=== PATIENT | female | born 1965 | race Caucasian/White ===

== ENCOUNTER → 2016-07-29 | Outpatient (CLI) | payer BC | LOC: MC.RAD 16:34 | DX: Z12.31 Encounter for screening mammogram for malignant neoplasm of breast (principal); N63 Unspecified lump in breast; Z80.3 Family history of malignant neoplasm of breast ==

== ENCOUNTER → 2016-08-02 | Outpatient (CLI) | payer BC | LOC: MC.RAD 08:30 | DX: D24.2 Benign neoplasm of left breast (principal); Z80.3 Family history of malignant neoplasm of breast ==

== ENCOUNTER → 2017-08-05 | Outpatient (CLI) | payer BC | LOC: MC.RAD 07:00 | DX: Z12.31 Encounter for screening mammogram for malignant neoplasm of breast (principal) ==

== ENCOUNTER 2017-09-09 10:32 | Inpatient (IN) | payer BC ==
[2017-09-09] VITALS (398 sets, daily range): BP systolic 87–101; BP diastolic 42–67; PULSE 113–162; TEMP 99.5–103.4; O2SAT 43–100
[~2017-09-09] VITALS: Ht 165.1 cm; Wt 83.3 kg
[2017-09-09] MEDS ORDERED: ZOFRAN ODT4 MG PO (10:45)
[2017-09-09 11:11] LABS: GRAN # 3.2 (1.4-6.5); GRAN % 87.6 % (42.2-75.2); HEMOGLOBIN 12.7 g/dl (12.5-16.0); LYMPH # 0.4 (1.2-3.4); MEAN CELL VOLUME 87 fl (80.0-100.0); MEAN CORPUSCULAR HEMOGLOBIN 30 pg (27.0-31.0); MEAN CORPUSCULAR HGB CONC 34 g/dl (33.0-37.0); MEAN PLATELET VOLUME 9.5 fl (7.4-10.4); MONO % 1.1 % (1.7-9.3); PLATELET COUNT 109 K/mm3 (130-400); RED BLOOD COUNT 4.26 M/mm3 (4.10-5.30); REDCELL DISTRIBUTION WIDTH-CV 12.7 % (11.5-14.5)
[2017-09-09 11:13] LABS: HEMATOCRIT 36.9 % (37.0-47.0)
[2017-09-09 11:32] LABS: COLLECTION METHOD CATHETER
[2017-09-09 11:35] LABS: ALBUMIN 3.8 gm/dL (3.5-5.0); CALCIUM 8.6 mg/dL (8.4-10.2); CREATININE, serum 1.92 mg/dL (0.52-1.25); POTASSIUM 3.8 mmol/L (3.4-5.0); TOTAL PROTEIN 6.8 gm/dL (6.4-8.2)
[2017-09-09 12:01] LABS: BUDDING YEAST Present /hpf; GRANULAR CAST >12 /lpf; HYALINE CAST >12 /lpf; MUCOUS Present /lpf; PH 5 (5-8); SQUAMOUS EPITHELIAL None Seen /hpf; URINE APPEARANCE Hazy; URINE BACTERIA Many /hpf; URINE BILIRUBIN Negative (NEGATIVE); URINE BLOOD 2+ (NEGATIVE); URINE COLOR Yellow; URINE GLUCOSE Negative (NEGATIVE); URINE KETONE Negative (NEGATIVE); URINE LEUKOCYTE ESTERASE 1+ (NEGATIVE); URINE NITRATE Positive (NEGATIVE); URINE PROTEIN(semi-quant) 1+ (NEGATIVE); URINE UROBILINOGEN Negative (NEGATIVE)
[2017-09-09] MEDS ORDERED: MULTI VITAMINS1 TAB PO (16:26)
[2017-09-09] MEDS ORDERED: CLARITIN 1010 MG/TAB PO (16:28)
[2017-09-09] MEDS ORDERED: CALCIUM 600 PLU1 TAB PO (16:29)
[2017-09-10] VITALS (1190 sets, daily range): BP systolic 72–138; BP diastolic 45–83; PULSE 72–106; TEMP 97.8–99.5; O2SAT 83–100
[2017-09-10 03:02] LABS: MEAN CELL VOLUME 91 fl (80.0-100.0); MEAN CORPUSCULAR HGB CONC 33 g/dl (33.0-37.0); MEAN PLATELET VOLUME 10.3 fl (7.4-10.4); PLATELET COUNT 61 K/mm3 (130-400); RED BLOOD COUNT 3.23 M/mm3 (4.10-5.30); REDCELL DISTRIBUTION WIDTH-CV 13.2 % (11.5-14.5)
[2017-09-10 03:13] LABS: ALBUMIN 2.4 gm/dL (3.5-5.0); BILIRUBIN,TOTAL 0.7 mg/dL (0.0-1.0); CALCIUM 6.1 mg/dL (8.4-10.2); CREATININE, serum 2.13 mg/dL (0.52-1.25); POTASSIUM 4.1 mmol/L (3.4-5.0); TOTAL PROTEIN 4.8 gm/dL (6.4-8.2)
[2017-09-10 03:38] LABS: TROPONIN-I 0.849 ng/mL (0.000-0.034)
[2017-09-10 03:39] LABS: HEMATOCRIT 29.4 % (37.0-47.0); MEAN CORPUSCULAR HEMOGLOBIN 30 pg (27.0-31.0)
[2017-09-10 03:40] LABS: HEMOGLOBIN 9.6 g/dl (12.5-16.0)
[2017-09-10 04:41] LABS: BAND 45 % (0-10); BASOPHIL 1 % (0-2); EOSINOPHIL 1 % (0-4); LYMPHOCYTE 3 % (20.0-51.0); METAMYELOCYTE 1 % (0-0); NEUTROPHILS 45 % (42.0-75.2); PLATELET ESTIMATE DECREASED (NORMAL)
[2017-09-10 09:00] LABS: CALCIUM 7.1 mg/dL (8.4-10.2); CREATININE, serum 1.85 mg/dL (0.52-1.25); POTASSIUM 4.1 mmol/L (3.4-5.0)
[2017-09-11] VITALS (733 sets, daily range): BP systolic 110–124; BP diastolic 65–89; PULSE 78–104; TEMP 97.8–101.6; O2SAT 64–100
[2017-09-11 05:44] LABS: MEAN CELL VOLUME 88 fl (80.0-100.0); MEAN CORPUSCULAR HGB CONC 34 g/dl (33.0-37.0); MEAN PLATELET VOLUME 11.1 fl (7.4-10.4); PLATELET COUNT 85 K/mm3 (130-400); RED BLOOD COUNT 3.48 M/mm3 (4.10-5.30); REDCELL DISTRIBUTION WIDTH-CV 13.7 % (11.5-14.5)
[2017-09-11 05:56] LABS: BILIRUBIN,TOTAL 0.7 mg/dL (0.0-1.0); CALCIUM 7.5 mg/dL (8.4-10.2); CREATININE, serum 1.22 mg/dL (0.52-1.25); POTASSIUM 3.4 mmol/L (3.4-5.0); TOTAL PROTEIN 5.7 gm/dL (6.4-8.2)
[2017-09-11 06:10] LABS: HEMATOCRIT 30.6 % (37.0-47.0); HEMOGLOBIN 10.3 g/dl (12.5-16.0); MEAN CORPUSCULAR HEMOGLOBIN 30 pg (27.0-31.0)
[2017-09-11 08:15] LABS: BAND 28 % (0-10); LYMPHOCYTE 3 % (20.0-51.0); NEUTROPHILS 65 % (42.0-75.2); PLATELET ESTIMATE DECREASED (NORMAL)
[2017-09-12 02:51] VITALS: BP 128/52; PULSE 77; TEMP 98.6
[2017-09-12 07:41] LABS: BASO % 0.2 % (0.0-2.0); EOS % 0.2 % (0-4.0); GRAN # 8.3 (1.4-6.5); GRAN % 81.6 % (42.2-75.2); LYMPH # 0.9 (1.2-3.4); LYMPH % 9.3 % (20.0-51.0); MEAN CELL VOLUME 87 fl (80.0-100.0); MEAN CORPUSCULAR HGB CONC 34 g/dl (33.0-37.0); MONO # 0.8 (0.1-0.6); PLATELET COUNT 78 K/mm3 (130-400); RED BLOOD COUNT 3.18 M/mm3 (4.10-5.30); REDCELL DISTRIBUTION WIDTH-CV 13.3 % (11.5-14.5)
[2017-09-12 07:46] LABS: HEMATOCRIT 27.7 % (37.0-47.0); HEMOGLOBIN 9.4 g/dl (12.5-16.0); MEAN CORPUSCULAR HEMOGLOBIN 30 pg (27.0-31.0)
[2017-09-12 07:57] LABS: ALBUMIN 2.7 gm/dL (3.5-5.0); BILIRUBIN,TOTAL 0.9 mg/dL (0.0-1.0); CALCIUM 7.7 mg/dL (8.4-10.2); CREATININE, serum 0.78 mg/dL (0.52-1.25); POTASSIUM 3.4 mmol/L (3.4-5.0); TOTAL PROTEIN 5.3 gm/dL (6.4-8.2)
[2017-09-12 09:21] VITALS: BP 120/75; PULSE 80; TEMP 98.8
[2017-09-12 11:06] VITALS: BP 138/86; PULSE 78; TEMP 98.1
[2017-09-12 15:58] VITALS: BP 134/79; BP 138/65; PULSE 75; PULSE 93; TEMP 97.9
[2017-09-12 21:35] VITALS: BP 99/55; PULSE 79; TEMP 97.7
[2017-09-13 00:04] VITALS: BP 127/75; PULSE 82; TEMP 98.6
[2017-09-13 04:10] VITALS: BP 123/72; PULSE 82; TEMP 98.7
[2017-09-13 06:30] LABS: MEAN CELL VOLUME 88 fl (80.0-100.0); MEAN CORPUSCULAR HGB CONC 34 g/dl (33.0-37.0); MEAN PLATELET VOLUME 11.6 fl (7.4-10.4); PLATELET COUNT 95 K/mm3 (130-400); RED BLOOD COUNT 3.09 M/mm3 (4.10-5.30); REDCELL DISTRIBUTION WIDTH-CV 13.6 % (11.5-14.5)
[2017-09-13 06:33] LABS: HEMATOCRIT 27.1 % (37.0-47.0); HEMOGLOBIN 9.3 g/dl (12.5-16.0); MEAN CORPUSCULAR HEMOGLOBIN 30 pg (27.0-31.0)
[2017-09-13 06:39] LABS: CALCIUM 7.9 mg/dL (8.4-10.2); CREATININE, serum 0.71 mg/dL (0.52-1.25)
[2017-09-13 06:53] LABS: POTASSIUM 2.9 mmol/L (3.4-5.0)
[2017-09-13 08:18] VITALS: BP 138/76; PULSE 105; TEMP 98.4
[2017-09-13 08:26] LABS: BAND 14 % (0-10); BASOPHIL 1 % (0-2); LYMPHOCYTE 13 % (20.0-51.0); NEUTROPHILS 69 % (42.0-75.2); PLATELET ESTIMATE DECREASED (NORMAL); POLYCHROMASIA 1+
[2017-09-13] MEDS ORDERED: ASPIRIN E.C. 8181 MG PO (12:17)
[2017-09-13 12:18] VITALS: BP 135/77; PULSE 85; TEMP 97.7
[2017-09-13] MEDS ORDERED: LEVAQUIN 750MG750 M1 PO (12:19)
== END 2017-09-13 17:01 | disposition home or self-care (01) | DRG 871 ==
LOC: COL.ER 10:32 → MEDICAL 13:00 → ICU 13:00 → MEDICAL 09-11 13:00
PROVIDERS: Emergency Medicine; Internal Medicine; Physician Assistant; Urology
PROC: 0T778DZ Dilation of Left Ureter with Intraluminal Device, Via Natural or Artificial Opening Endoscopic (ICD-10-PCS; principal; 2017-09-09 18:30)
DX: A41.51 Sepsis due to Escherichia coli [E. coli] (principal); I21.A1 Myocardial infarction type 2; N20.1 Calculus of ureter; N39.0 Urinary tract infection, site not specified; N13.30 Unspecified hydronephrosis; R65.20 Severe sepsis without septic shock; E87.6 Hypokalemia; K81.9 Cholecystitis, unspecified; D64.9 Anemia, unspecified; R19.7 Diarrhea, unspecified; N28.9 Disorder of kidney and ureter, unspecified
CPT/HCPCS: 99223-AI; 99232-AI; 99233-AI; 99239; A4314; A9284; C1769; C2617; J0610; J0696; J0780; J1200; J1644; J2405; J2543; J2704; J3010; J7030; J7040; J7060; P9047

== ENCOUNTER 2017-09-28 09:01 | Day surgery (SDC) | payer BC ==
[~2017-09-28] VITALS: Ht 165.1 cm; Wt 66.3 kg
[~2017-09-28 09:01] MED LIST: ASPIRIN E.C. 8181 MG PO; CALCIUM 600 PLU1 TAB PO; CLARITIN 1010 MG/TAB PO; LEVAQUIN 750MG750 M1 PO; MULTI VITAMINS1 TAB PO; ZOFRAN ODT4 MG PO
[2017-09-28 09:21] VITALS: BP 114/70; PULSE 88; TEMP 98
[2017-09-28] MEDS ORDERED: ASPIRIN 81M81 MG/TA2 PO (09:25)
[2017-09-28] MEDS ORDERED: TYLENOL 500MG500 MG PO (09:27)
[2017-09-28] MEDS ORDERED: INDERAL 20MG20 MG PO (10:08)
[2017-09-28 12:25] VITALS: BP 133/74; PULSE 66; TEMP 97.2
[2017-09-28 12:40] VITALS: BP 125/75; PULSE 76
[2017-09-28 12:55] VITALS: BP 114/81; PULSE 82
[2017-09-28 13:10] VITALS: BP 116/74; PULSE 76
[2017-09-28 13:40] VITALS: BP 105/63; PULSE 74
== END 2017-09-28 14:05 | disposition home or self-care (01) ==
LOC: SDCO 09:01
DX: N20.1 Calculus of ureter (principal); Z79.82 Long term (current) use of aspirin; Z88.0 Allergy status to penicillin; Z87.440 Personal history of urinary (tract) infections; Z80.3 Family history of malignant neoplasm of breast; Z80.0 Family history of malignant neoplasm of digestive organs; Z82.49 Family history of ischemic heart disease and other diseases of the circulatory system; Z84.1 Family history of disorders of kidney and ureter
CPT/HCPCS: C1769; C2617; J0690; J1100; J2405; J2550; J2704; J3010; J7120

== ENCOUNTER → 2017-10-27 | Outpatient (CLI) | payer BC ==
[~2017-10-27] MED LIST changes: +ASPIRIN 81M81 MG/TA2 PO; +INDERAL 20MG20 MG PO; +TYLENOL 500MG500 MG PO
== END ==
LOC: MC.RAD 08:15
DX: N60.01 Solitary cyst of right breast (principal)

== ENCOUNTER → 2018-09-14 | Outpatient (CLI) | payer OTHER | LOC: MC.RAD 07:45 | DX: Z12.31 Encounter for screening mammogram for malignant neoplasm of breast (principal); N63.10 Unspecified lump in the right breast, unspecified quadrant; N63.20 Unspecified lump in the left breast, unspecified quadrant ==

== ENCOUNTER → 2019-10-23 | Outpatient (CLI) | payer SELFPAY | LOC: MC.RAD 09:28 | DX: Z12.31 Encounter for screening mammogram for malignant neoplasm of breast (principal) ==

== ENCOUNTER → 2020-11-06 | Outpatient (CLI) | payer SELFPAY | LOC: MC.RAD 07:30 | DX: Z12.31 Encounter for screening mammogram for malignant neoplasm of breast (principal) ==

== ENCOUNTER → 2021-11-17 | Outpatient (CLI) | payer SELFPAY | LOC: MC.RAD 11:27 | DX: Z12.31 Encounter for screening mammogram for malignant neoplasm of breast (principal) ==

== ENCOUNTER → 2024-01-25 | Outpatient (CLI) | payer OTHER | LOC: MC.RAD 10:03 | DX: Z12.31 Encounter for screening mammogram for malignant neoplasm of breast (principal); N64.89 Other specified disorders of breast ==

== ENCOUNTER → 2024-01-30 | Outpatient (CLI) | payer OTHER | LOC: MC.RAD 06:55 | DX: N64.89 Other specified disorders of breast (principal); Z98.82 Breast implant status ==

== ENCOUNTER → 2024-03-05 | Outpatient (CLI) | payer OTHER ==
[~2024-03-05] MED LIST changes: +Famotidine 20 MG TAB PO SCH; +LR 1,000 ML IV SCH; +Meclizine 25 MG TAB PO SCH; +NORCO 325 MG-51 TAB PO
== END ==
LOC: MC.RAD 12:52
DX: C50.911 Malignant neoplasm of unspecified site of right female breast (principal)
CPT/HCPCS: 32605; C1769

== ENCOUNTER 2024-03-06 07:04 | Day surgery (SDC) | payer OTHER ==
[2024-03-06] VITALS (10 sets, daily range): BP systolic 95–123; BP diastolic 67–82; PULSE 60–80; TEMP 97.1–97.3
[~2024-03-06] VITALS: Ht 165.1 cm; Wt 70.5 kg
[~2024-03-06 07:04] MED LIST changes: -Famotidine 20 MG TAB PO SCH; -LR 1,000 ML IV SCH; -Meclizine 25 MG TAB PO SCH; -NORCO 325 MG-51 TAB PO
[2024-03-06] MEDS ORDERED: Midazolam 2 MG/2 ML VIAL ONE (08:10)
[2024-03-06] MEDS ORDERED: Ketorolac 30 MG/ML VIAL ONE (08:10)
[2024-03-06] MEDS ORDERED: fentaNYL 50 MCG/ML 2 ML VIAL ONE (08:10)
[2024-03-06] MEDS ORDERED: NS 30 ML IV ONE (08:10)
[2024-03-06] MEDS ORDERED: Lidocaine PF 2% (20 MG/ML) 5 ML VIAL ONE (08:10)
[2024-03-06] MEDS ORDERED: Glycopyrrolate 0.2 MG/ML 1 ML VIAL ONE (08:10)
[2024-03-06] MEDS ORDERED: Ondansetron 4 MG/2 ML VIAL ONE (08:10)
[2024-03-06] MEDS ORDERED: dexAMETHasone 10 MG/ML VIAL ONE (08:10)
[2024-03-06] MEDS ORDERED: hydrALAZINE 20 MG/ML 1 ML VIAL IV PRN (08:15)
[2024-03-06] MEDS ORDERED: Ondansetron 4 MG/2 ML VIAL IV PRN ×2 (08:15→11:00)
[2024-03-06] MEDS ORDERED: fentaNYL 50 MCG/ML 1 ML SYRINGE/VIAL [PACU/SDC ONLY] IV PRN (08:15)
[2024-03-06] MEDS ORDERED: droPERidol 2.5 MG/ML 2 ML VIAL IV PRN (08:15)
[2024-03-06] MEDS ORDERED: LR 1,000 ML IV SCH (08:15)
[2024-03-06] MEDS ORDERED: HYDROmorphone 1 MG/1 ML SYRINGE [PACU/SDC ONLY] IV PRN (08:15)
[2024-03-06] MEDS ORDERED: Morphine 2 MG/1 ML VIAL [PACU/SDC ONLY] IV PRN (08:15)
[2024-03-06 08:57] LABS: BASO % 0.4 % (0.0-2.0); EOS % 0.6 % (0.0-4.0); GRAN # 2.9 K/mm3 (1.4-6.5); GRAN % 59.3 % (42.2-75.2); HEMATOCRIT 42.1 % (37.0-47.0); HEMOGLOBIN 14.2 g/dl (12.5-16.0); LYMPH # 1.5 K/mm3 (1.2-3.4); LYMPH % 30.9 % (20.0-51.0); MEAN CELL VOLUME 88 fl (80.0-100.0); MEAN CORPUSCULAR HEMOGLOBIN 30 pg (27-31); MEAN CORPUSCULAR HGB CONC 34 g/dl (33.0-37.0); MEAN PLATELET VOLUME 8.9 fl (7.4-10.4); MONO # 0.4 K/mm3 (0.1-0.6); MONO % 8.4 % (1.7-9.3); PLATELET COUNT 227 K/mm3 (130-400); RED BLOOD COUNT 4.76 M/mm3 (4.10-5.30); REDCELL DISTRIBUTION WIDTH-CV 12.6 % (11.5-14.5)
[2024-03-06 09:14] LABS: BILIRUBIN,TOTAL 0.5 mg/dL (0.2-1.2); CALCIUM 9.5 mg/dL (8.4-10.2); CREATININE, serum 0.8 mg/dL (0.57-1.11); POTASSIUM 4.2 mEq/L (3.5-4.5); TOTAL PROTEIN 6.9 g/dl (6.2-8.1)
[2024-03-06] MEDS ORDERED: Lidocaine PF 2% (20 MG/ML) 5 ML VIAL SQ ONE ×2 (09:29)
[2024-03-06] MEDS ORDERED: BUPivacaine PF 0.5% w EPI (1:200,000) 10 ML VIAL SQ ONE ×2 (09:29)
[2024-03-06] MEDS ORDERED: NORCO 325 MG-51 TAB PO (10:53)
[2024-03-06] MEDS ORDERED: Morphine 4 MG/ML VIAL IV PRN (11:00)
[2024-03-06] MEDS ORDERED: LR 1,000 ML IV ONE (12:30)
--- NOTE | 2024-03-06 13:55 | NUR ---
1115 RETURNS TO ROOM 3 PER CART AWAKE, ALERT. HOB ELEVATED 45 DEGREES. VITAL SIGNS OBTAINED. DRESSING RIGHT BREAST AND DRESSING RIGHT AXILLA AREA CLEAN DRY AND INTACT. SURGICAL AREA SOFT WITH GENTLE PALPATION. REPORTS MILD DISCOMFORT. DENIES NEED FOR PAIN MED. CALL LIGHT AT SIDE. HERE 1130 PATIENT TOLERATES SMALL AMOUNTS OF PO WATER WITHOUT NAUSEA 1145 AWAKE, ALERT. HOB ELEVATED 60 DEGREES 1150 DISCHARGE INSTRUCTIONS REVIEWED. PATIENT VERBALIZES UNDERSTANDING. COPY PROVIDED IN DISCHARGE FOLDER 1210 PATIENT EXPRESSES PRESENCE OF INCREASED NAUSEA WITH MOVEMENT. SMALL AMOUNT OF CLEAR EMESIS 1218 IV ZOFRAN [address] ENRIQUE HERE. AWARE OF PATIENT'S NAUSEA 1234 NEW BAG OF IV FLUID INFUSING 1245 HOB 20 DEGREES. LIGHTS IN ROOM DIMMED. LEAVES TO GET PRESCRIPTION 1300 DOZING. RESP UNLABORED 1315 CONTINUES TO DOZE, AROUSES EASILY. REPORTS DECREASED NAUSEA 1330 PATIENT AWAKE. HOB ELEVATED 50 DEGREES. PATIENT REQUESTS TO GO HOME AND REST THERE. 1340 SITS ON EDGE OF BED. DRESSES SELF. NO INCREASED NAUSEA WITH THIS ACTIVITY
== END 2024-03-06 13:55 | disposition home or self-care (01) ==
LOC: SDCO 07:04
PROVIDERS: Registered Nurse
DX: C50.111 Malignant neoplasm of central portion of right female breast (principal); Z17.0 Estrogen receptor positive status [ER+]
CPT/HCPCS: A4648; J0690; J1100; J1170; J1885; J2250; J2405; J2704; J2795; J3010; J7120